=== PATIENT | male | born 1975 | race Hispanic/Latino ===

== ENCOUNTER 2024-02-05 06:36 | Day surgery (SDC) | payer OTHER ==
[2024-02-03 10:38] LABS: BASOPHILS # (AUTO) 0.04 K/uL (0.00-0.20); BASOPHILS % (AUTO) 0.6 % (0.0-5.0); EOSINOPHILS # (AUTO) 0.19 K/uL (0.00-0.70); EOSINOPHILS % (AUTO) 2.6 % (0.0-8.0); HEMATOCRIT 48.6 % (42-54); IMMATURE GRANULOCYTE ABSOLUTE 0.04 K/uL (0-1); LYMPHOCYTES # (AUTO) 2.1 K/uL (1.0-4.8); LYMPHOCYTES % (AUTO) 29.7 % (21.0-51.0); MEAN CORPUSCULAR HGB CONC 35.4 g/dL (32.0-36.0); MEAN CORPUSCULAR VOLUME 90.5 fL (79-99); MONOCYTES # (AUTO) 0.5 K/uL (0.1-1.0); MONOCYTES % (AUTO) 7.5 % (3.0-13.0); NEUTROPHILS # (AUTO) 4.2 K/uL (1.8-7.7); PLATELET COUNT (AUTO) 187 K/uL (130-400); RED BLOOD CELL COUNT(AUTO) 5.37 MIL/uL (4.50-6.20); RED CELL DISTRIBUTION WIDTH 12.2 % (11.0-15.5); WHITE BLOOD COUNT (AUTO) 7.2 K/uL (4.8-10.8)
[2024-02-03 10:54] LABS: INR <= 0.93 (0.85-1.15); PROTHROMBIN TIME 10.5 SEC (9.6-11.6)
[2024-02-03 10:56] LABS: PARTIAL THROMBOPLASTIN TIME 31.6 SEC (26.3-35.5)
[2024-02-03 11:00] VITALS: BP 147/93; PULSE 61; RESP 19
[2024-02-03 11:12] LABS: BILIRUBIN,TOTAL 0.6 mg/dL (0.2-1.0); CREATININE 0.9 mg/dL (0.5-1.5); POTASSIUM 4.8 mmol/L (3.5-5.1); TOTAL PROTEIN, SERUM 7.8 g/dL (6.0-8.3)
[2024-02-05] VITALS (17 sets, daily range): BP systolic 109–178; BP diastolic 63–93; PULSE 48–73; RESP 15–20
[~2024-02-05] VITALS: Ht 182.9 cm; Wt 99.4 kg
[~2024-02-05 06:36] MED LIST: LISI10TA24 PO; OMEP40CA21 PO
[2024-02-05] MEDS ORDERED: BUPIVACAINE/PF 0.25% 30ML VIAL IJ ONE (07:49)
[2024-02-05] MEDS ORDERED: LIDOCAINE 1%-EPI 1:100,000 20 ML VIAL ONE (07:49)
[2024-02-05] MEDS ORDERED: LIDOCAINE PF 100MG/5ML (2%) SYRINGE 5ML ONE (08:09)
[2024-02-05] MEDS ORDERED: PROPOFOL 10 MG/ML 20ML VIAL IV ONE ×2 (08:10→08:19)
[2024-02-05] MEDS ORDERED: MIDAZOLAM HCL 1 MG/ML 2ML VIAL ONE (08:10)
[2024-02-05] MEDS ORDERED: FENTANYL CITRATE PF 50 MCG/1 ML 2ML VIAL ONE (08:11)
[2024-02-05] MEDS: LIDOCAINE 1%-EPI 1:100,000 20 ML VIAL IJ ONE (08:19)
[2024-02-05] MEDS: BUPIVACAINE/PF 0.25% 30ML VIAL IJ ONE (08:20)
[2024-02-05] MEDS: INVANZ 1GM+NS 50ML IVPB 50 ML IV ONE (08:30)
[2024-02-05] MEDS: LACTATED RINGERS 1000ML 1,000 ML IV ONE (08:30)
[2024-02-05] MEDS ORDERED: KETOROLAC 30MG VIAL (30MG/ML) ONE (09:14)
[2024-02-05] MEDS: TAMSULOSIN HCL 0.4 MG CAP.ER.24H PO ONE (10:38)
== END 2024-02-05 11:10 | disposition home or self-care (01) ==
LOC: DAH 06:36
PROVIDERS: ATTEND Surgery
DX: K64.0 First degree hemorrhoids (principal); K64.8 Other hemorrhoids; L29.0 Pruritus ani; I10 Essential (primary) hypertension; E66.9 Obesity, unspecified; Z79.01 Long term (current) use of anticoagulants; Z79.899 Other long term (current) drug therapy; Z98.890 Other specified postprocedural states; Z80.9 Family history of malignant neoplasm, unspecified; Z68.29 Body mass index [BMI] 29.0-29.9, adult
CPT/HCPCS: 93005; 80053; 85025; 85610; 85730; 36415; 45541; 46946; A6260; A4663; J7120 ×2; A4344; J3010; J3490 ×2; J0665 ×2; J2001; J2250; J2704 ×2; J1885; J1335; A4649; A4930; A4215; A4223; A4222; A4221